=== PATIENT | female | born 1990 | race Caucasian/White ===

== ENCOUNTER 2020-05-22 23:44 | Emergency (ER) | payer OTHER ==
[~2020-05-22] VITALS: Ht 167.6 cm; Wt 83.9 kg
[2020-05-23] MEDS ORDERED: HYDROCODONE/APAP 5/325MG 1 EACH TABLET PO ONE
[2020-05-23] MEDS ORDERED: HYDROCODONE/APAP 5/325MG 1 EACH TABLET ONE (00:03)
--- NOTE | 2020-05-23 00:10 | NUR ---
PATIENT CAME TO ER BED 7 C/O LEFT LEG PAIN. PATIENT STATES THAT SHE TOOK THE LAST STEP OF STAIRS AND ROLLED HER ANKLE. PATIENT CAME BY FRIEND DRIVING TO THE ER. PATIENT HAS STRONG AND EQUAL BILATERAL PEDAL PULSES. SENSATIONS ARE EQUAL AND NORMAL ON BOTH LOWER EXTREMITIES. AAOX4. NO SOB. BREATHING EVENLY AND UNLABORED ON ROOM AIR.
[2020-05-23] MEDS ORDERED: MORPHINE SULFATE INJ 2 MG/ML DISP.SYRIN IM ONE (00:30)
[2020-05-23] MEDS ORDERED: ONDANSETRON 4 MG TAB.RAPDIS PO ONE (00:30)
[2020-05-23] MEDS ORDERED: MORPHINE SULFATE INJ 4 MG/ML DISP.SYRIN ONE (00:35)
[2020-05-23] MEDS ORDERED: ONDANSETRON 4 MG TAB.RAPDIS ONE (00:35)
--- NOTE | 2020-05-23 01:02 | NUR ---
GAIT TRAINING COMPLETE.
--- NOTE | 2020-05-23 01:03 | NUR ---
Patient discharged to home in stable condition. Written and verbal after care instructions given. Patient verbalizes understanding of instruction.
[2020-05-23 01:18] VITALS: BP 133/82
== END 2020-05-23 01:20 | disposition home or self-care (01) ==
LOC: ER 23:44
DX: S82.65XA Nondisplaced fracture of lateral malleolus of left fibula, initial encounter for closed fracture (principal); X50.1XXA Overexertion from prolonged static or awkward postures, initial encounter; Y93.89 Activity, other specified; Y92.89 Other specified places as the place of occurrence of the external cause; Y99.0 Civilian activity done for income or pay
CPT/HCPCS: 29515; 73610; 96372; 99283; J2270; Q0162